=== PATIENT | male | born 1995 | race Two or more races ===

== ENCOUNTER → 2017-01-21 | Emergency (ER) | payer OTHER, BC ==
[~2017-01-21] MED LIST: KETOROLAC TROMETHAMINE 60 MG/2 ML VIAL IM ONE; KETOROLAC TROMETHAMINE 60 MG/2 ML VIAL ONE
[2017-01-21 19:15] VITALS: BP 130/69; PULSE 99; TEMP 98; BMI 25.1
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
== END | disposition home or self-care (01) ==
LOC: JER 19:07
DX: M54.2 Cervicalgia (principal); M54.6 Pain in thoracic spine; F17.210 Nicotine dependence, cigarettes, uncomplicated; V43.52XA Car driver injured in collision with other type car in traffic accident, initial encounter; W22.11XA Striking against or struck by driver side automobile airbag, initial encounter; Y92.414 Local residential or business street as the place of occurrence of the external cause; Y93.89 Activity, other specified; Y99.8 Other external cause status
CPT/HCPCS: 99282-25